=== PATIENT | female | born 1950 | race Caucasian/White ===

== ENCOUNTER → 2016-10-19 | Day surgery (SDC) | payer MEDICARE ==
--- NOTE | 2016-10-13 22:46 | HP ---
PREOPERATIVE HISTORY AND PHYSICAL EXAM: DATE OF OFFICE VISIT: 10/14/16 DATE OF SURGERY/ADMISSION: 10/19/16 ATTENDING SURGEON: Juliana Arevalo MD PROCEDURE: Right long finger excision mass. CHIEF COMPLAINT: Cyst, right ring finger. HISTORY OF PRESENT ILLNESS: This is a 66-year-old female complaining of a mass on the dorsal aspect of her right middle finger that has been present for approximately 3 years. She is not sure whether it is related to an injury she sustained back in 1981, but does not believe that this was present until about 3 years ago. She has had the lump aspirated once by her primary care doctor about 3 years ago and then she has lanced it a few times on her own, but it continues to recur. She is not complaining of any significant pain, but does report that the cyst fluctuates in size and can be bothersome when it is at its largest. She is also unhappy with it cosmetically. She denies any tingling or numbness associated with it, but gets pain when she hits things with the back of her finger. She would like to have it surgically removed. PAST MEDICAL HISTORY: 1. Hypertension. 2. History of skin cancer. PAST SURGICAL HISTORY: 1. Removal of skin cancer lesions. 2. Hysterectomy. CURRENT MEDICATIONS: 1. Lisinopril 5 mg daily. 2. Yuvafem 10 mcg daily. ALLERGIES: No known drug allergies. FAMILY MEDICAL HISTORY: Noncontributory. SOCIAL HISTORY: The patient is retired. She denies tobacco or illicit drug use. Does report alcohol use on occasion. REVIEW OF SYSTEMS: General: Negative for fevers, chills, or night sweats. No known anesthesia problems. HEENT: Negative for headache, lightheadedness, or syncopal episodes. Integumentary: Negative for abrasions, lesions, or open wounds. Cardiothoracic: Positive for hypertension. Negative for chest pain, palpitations, or edema. Pulmonary: Negative for shortness of breath with exertion, chronic cough, or COPD. GI: Negative for nausea, vomiting, diarrhea , constipation, or GERD. : Negative for nocturia, urinary frequency, urgency , history of UTIs, or kidney problems. Musculoskeletal: Positive for current complaint. Negative for chronic or intermittent back pain, or history of fractures. Neurological: Negative for paresthesias, numbness, history of seizures, stroke, or epilepsy. Endocrine: Negative for diabetes and thyroid issues. Hematologic: Negative for easy bruising, anemia, excessive bleeding, or history of DVT. Infectious Disease: Negative for history of MRSA, hepatitis C, or HIV. PHYSICAL EXAMINATION GENERAL: Well-developed, well-nourished 66-year-old female, in no acute distress. VITAL SIGNS: Height 5 feet 2 inches, weight 136 pounds, pulse rate 61, and blood pressure 140/79. HEENT: Normocephalic, atraumatic. Pupils equal, round, reactive to light and accommodation. Extraocular movements are intact. NECK: Supple. No palpable lymph nodes. Throat is clear. PULMONARY: Lungs are clear to auscultation bilaterally. No wheezes, rales, or rhonchi. CARDIOTHORACIC: Regular rate and rhythm. S1, S2. No murmurs, rubs, or gallops. No edema. ABDOMEN: Positive bowel sounds. Soft, nontender. NEUROLOGICAL: Alert and oriented x3. Cranial nerves II through XII are intact. Sensation is intact to light touch. MUSCULOSKELETAL: On exam of her right middle finger, there is what appears to be a mucous cyst on the dorsal aspect of the DIP joint just distal to the joint. She had full extension and full flexion of the finger. There is minimal tenderness to palpation. There is no swelling. It has recently sealed over from the patient having lanced it and there is some deformity of the fingernail. 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 IMPRESSION: Right middle finger mucous cyst. PLAN: The patient is scheduled to undergo a right long finger excision of the mass with Dr. Arevalo on 10/19/16. She will return to the office in 10 to 14 days postop for followup and suture removal. A prescription for Ultracet was e- scribed to the patient's pharmacy for postoperative pain management. KAVIN PICKETT [id number]/[facility] #: [id number] [place]
[~2016-10-19] MED LIST: Buffered Lidocaine 1% SYR 3ML* 3 ML/SYR SYRINGE INTRADERM ONE; Buffered Lidocaine 1% SYR 3ML* 3 ML/SYR SYRINGE ONE; Lidocaine 1% INJ* 10 MG/ML 30 ML SDV ONE; Lidocaine 2% PF * 5 ML VIAL ONE; Propofol* 10 MG/ML 20 ML BTL IV PUSH ONE
[2016-10-19 07:52] VITALS: BP 139/76
--- NOTE | 2016-10-20 00:16 | OP ---
DATE OF OPERATION: 10/19/16 [facility] DATE OF : 52 SURGEON: Juliana Arevalo MD VAULT CLERK: KAVIN Nolan ANESTHESIOLOGIST: Bereket Chi DO ANESTHESIA: Local MAC. PRE-OP DIAGNOSIS: Right long finger mass. POST-OP DIAGNOSIS: Right long finger mass. OPERATIVE PROCEDURE: Excision of the mass from the right long finger. ESTIMATED BLOOD LOSS: Zero. TOURNIQUET TIME: 10 minutes. INDICATIONS: Tr is a 66-year-old female who has a painful mass on the dorsal aspect on her right middle finger DIP joint. She has had it aspirated and lanced a couple of times, but it persistently returns. She presents for mass removal of the right long finger. DESCRIPTION OF PROCEDURE: The patient was brought to the operating room, was given a sedation anesthetic and a digital block with 10 cc of 1% pain lidocaine. The skin of her right hand and forearm was prepped and dapped in the usual sterile fashion. The hand and forearm were exsanguinated and the tourniquet elevated to 250 mmHg. An H-shaped incision was made centered on the DIP joint of the right long finger. We dissected through the subcutaneous tissue and elevated skin flaps sharply with a knife. The ganglion cyst was removed from the distal skin flap and sent for pathology. The incision was made on either side of the extensor tendon and the underlying osteophytes at the DIP joint were debrided with a rongeur. The wound was irrigated and the skin edges were reapproximated with 4-0 nylon suture. The wound was dressed with Xeroform, 4x4, Webril, and Coban. The patient tolerated the procedure well , was brought to the recovery room in good condition. [id number]/[facility] #: [id number] [facility]
== END | disposition home or self-care (01) ==
LOC: OREAST 07:27
PROVIDERS: ATTEND Orthopaedic Surgery
DX: M67.441 Ganglion, right hand (principal); I10 Essential (primary) hypertension; Z85.828 Personal history of other malignant neoplasm of skin
CPT/HCPCS: 88304; J2704